=== PATIENT | male | born 1970 | race Two or more races ===

== ENCOUNTER 2019-11-25 09:00 | Emergency (ER) | payer OTHER ==
--- NOTE | 2019-11-25 09:07 | ER Document Report ---
ED Medical Screen (RME) - General Chief Complaint: Abdominal Swelling Stated Complaint: ABDOMINAL LUMP - LEFT SIDE Time Seen by Provider: 11/25/19 09:06 Mode of Arrival: Ambulatory Information source: Patient Notes: 49-year-old male presented to ED for complaint of swelling and pain to the left abdomen in the area of the spleen he said it is been going on for about a month and is painful. He is alert oriented respirations regular nonlabored speaking in full sentences. He states he has not had any injuries that would cause this pain and swelling. He denies any past medical history. He denies any past surgeries. 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 He lives with his significant other. I have greeted and performed a rapid initial assessment of this patient. A comprehensive ED assessment and evaluation of the patient, analysis of test results and completion of medical decision making process will be conducted by an additional ED providers.
[2019-11-25 09:17] VITALS: BP 157/99
[2019-11-25 09:32] LABS: ABSOLUTE EOSINOPHILS # (AUTO) 0.2 10^3/uL (0.0-0.6); ABSOLUTE LYMPHOCYTES (AUTO) 1.6 10^3/uL (0.5-4.7); ABSOLUTE MONOCYTES (AUTO) 0.6 10^3/uL (0.1-1.4); ABSOLUTE NEUT (AUTO) 5.7 10^3/uL (1.7-8.2); BASOPHILS % (AUTO) 0.5 % (0-2); EOSINOPHILS % (AUTO) 2.8 % (0-6); HEMATOCRIT 43.4 % (37.9-51.0); HEMOGLOBIN 14.9 g/dL (13.5-17.0); LYMPHOCYTES % (AUTO) 19.4 % (13-45); MEAN CORPUSCULAR HEMOGLOBIN 31.1 pg (27.0-33.4); MEAN CORPUSCULAR HGB CONC 34.3 g/dL (32.0-36.0); MEAN CORPUSCULAR VOLUME 90 fl (80-97); MONOCYTES % (AUTO) 7.1 % (3-13); PLATELET COUNT 239 10^3/uL (150-450); RED CELL DISTRIBUTION WIDTH 13.9 % (11.5-14.0); SEGMENTED NEUTROPHILS % (AUTO) 70.2 % (42-78); TOTAL CELLS COUNTED % (AUTO) 100 %; WHITE BLOOD COUNT 8.1 10^3/uL (4.0-10.5)
[2019-11-25 09:37] LABS: INTERNATIONAL RATION (INR) 0.96; PARTIAL THROMBOPLASTIN TIME 25.5 SEC (23.5-35.8); PROTHROMBIN TIME 12.8 SEC (11.4-15.4)
[2019-11-25 09:46] LABS: APPEARANCE,URINE CLEAR; BILIRUBIN,URINE NEGATIVE (NEGATIVE); COLOR,URINE STRAW; GLUCOSE, URINE >=500 mg/dL (NEGATIVE); KETONES,URINE NEGATIVE (NEGATIVE); PROTEIN,URINE NEGATIVE (NEGATIVE); URINE SPECIFIC GRAVITY 1.027; UROBILINOGEN,URINE NEGATIVE mg/dL (<2.0)
[2019-11-25 09:52] LABS: ALBUMIN 4.3 g/dL (3.5-5.0); ALKALINE PHOSPHATASE 123 U/L (38-126); ANION GAP 8 (5-19); ASPARTATE AMINO TRANSFERASE 33 U/L (17-59); BILIRUBIN,TOTAL 0.6 mg/dL (0.2-1.3); BLOOD UREA NITROGEN 17 mg/dL (7-20); CALCIUM 9.5 mg/dL (8.4-10.2); CARBON DIOXIDE 29 mmol/L (22-30); CHLORIDE 98 mmol/L (98-107); POTASSIUM 4.5 mmol/L (3.6-5.0); TOTAL PROTEIN 7.7 g/dL (6.3-8.2)
[2019-11-25 10:02] LABS: GLUCOSE 513 mg/dL (75-110)
--- NOTE | 2019-11-25 10:45 | RADIOLOGY REPORT (SQ) ---
EXAM DESCRIPTION: U/S ABDOMEN LIMITED W/O DOP IMAGES COMPLETED DATE/TIME: 11/25/2019 10:23 am REASON FOR STUDY: Pain and swelling in the area of the spleen COMPARISON: None. TECHNIQUE: Static and real time dorantes scale ultrasound images acquired of the spleen. Additional colo r Doppler images acquired. LIMITATIONS: None. FINDINGS: MEASUREMENTS: 11.7 cm. Within normal range. PARENCHYMA: Normal. No masses. ADJACENT SOFT TISSUES: Normal. OTHER: No other significant finding. IMPRESSION: NORMAL SPLEEN. TECHNICAL DOCUMENTATION: JOB ID: [id number] 2010 [employer]- All Rights Reserved Reading location - IP/workstation name: [email or web address]
--- NOTE | 2019-11-25 11:41 | ER Document Report ---
ED General - General Chief Complaint: Abdominal Swelling Stated Complaint: ABDOMINAL LUMP - LEFT SIDE Time Seen by Provider: 11/25/19 09:06 Mode of Arrival: Ambulatory Notes: 49-year-old male presents to the emergency department with a complaint of concerns about a area of bulging on his left flank area/side. He denies pain. But feels like one side is more bulged than the other. He denies any injury or other associated difficulties. He has a history of type 2 diabetes mellitus. - Related Data Allergies/Adverse Reactions: No Known Allergies Allergy (Unverified 11/25/19 11:12) Home Medications: metformin Past Medical History - General Information source: Patient - Social History Smoking Status: Current Every Day Smoker Chew tobacco use (# tins/day): No Frequency of alcohol use: Heavy Drug Abuse: Marijuana Family History: Reviewed & Not Pertinent Patient has suicidal ideation: No Patient has homicidal ideation: No Endocrine Medical History: Reports: Hx Diabetes Mellitus Type 2 Past Surgical History: Denies: Hx Bowel Surgery Review of Systems - Review of Systems Notes: Constitutional: Negative for fever. HENT: Negative for sore throat. Eyes: Negative for visual changes. Cardiovascular: Negative for chest pain. Respiratory: Negative for shortness of breath. Gastrointestinal: Negative for abdominal pain, vomiting or diarrhea. Genitourinary: Negative for dysuria. Musculoskeletal: + Left side bulging.. Skin: Negative for rash. Neurological: Negative for headaches, weakness or numbness. 10 point ROS negative except as marked above and in HPI. Physical Exam - Vital signs Vitals: Temp Pulse Resp BP Pulse Ox 98.6 F 87 20 157/99 H 98 11/25/19 09:07 11/25/19 09:07 11/25/19 09:07 11/25/19 09:07 11/25/19 09:07 - Notes Notes: PHYSICAL EXAMINATION: Physical Exam: General: Well-nourished well-developed in no acute distress HEENT: NC/AT, pupils equal round and reactive to light, MM moist,nares clear, oropharynx clear, airway patent Neck: supple, no adenopathy, no masses. Good range of motion Lungs: clear, no wheezing, no rales no rhonchi CVS: Regular rate and rhythm no murmur gallop or rub Abdomen: Soft, active, nontender, no masses, no hepatosplenomegaly Musculoskeletal: + Fatty tissue left flank area Ext: No edema, clubbing or cyanosis. Neuro: Alert and responsive, moving all 4 extremities on command, cranial nerves intact, no focal findings Skin: Intact no open lesions, no rash PSYCH: Normal mood, normal affect. Course - Re-evaluation Re-evalutation: 11/25/19 11:56 Ultrasound: Spleen is normal, no abnormalities noted, I explained this to the patient, reviewed the labs reveals an elevated glucose greater than 500. I discussed with the patient bringing that blood sugar down with IV fluids and he states that he does not have the time to wait in the emergency department for that treatment. He will start the sweet drinks and take his medication which he has not been taking as per usual. After some discussion the patient has stated that he will sign out AGAINST MEDICAL ADVICE. - Vital Signs Vital signs: Temp Pulse Resp BP Pulse Ox 98.6 F 87 20 157/99 H 98 11/25/19 09:18 11/25/19 09:07 11/25/19 09:07 11/25/19 09:07 11/25/19 09:07 - Laboratory Result Diagrams: 11/25/19 09:15 11/25/19 09:15 Laboratory results interpreted by me: 11/25/19 11/25/19 09:15 09:26 Sodium 134.6 L Glucose 513 H* Urine Glucose (UA) >=500 H Urine Blood SMALL H Discharge - Discharge Clinical Impression: Lipoma of abdominal wall Condition: Good Disposition: AGAINST MEDICAL ADVICE
== END 2019-11-25 11:56 | disposition left against medical advice (07) ==
LOC: ER 09:00
DX: D17.1 Benign lipomatous neoplasm of skin and subcutaneous tissue of trunk (principal); E11.65 Type 2 diabetes mellitus with hyperglycemia; Z91.14 Patient's other noncompliance with medication regimen; F17.200 Nicotine dependence, unspecified, uncomplicated; F12.10 Cannabis abuse, uncomplicated; Z53.29 Procedure and treatment not carried out because of patient's decision for other reasons
CPT/HCPCS: 36415; 76705; 80053; 81001; 85025; 85610; 85730; 99284

== ENCOUNTER 2019-11-29 08:00 | Emergency (ER) | payer OTHER ==
[2019-11-29 08:09] VITALS: BP 149/95
--- NOTE | 2019-11-29 08:28 | ER Document Report ---
ED GI/ - General Chief Complaint: Abdominal Swelling Stated Complaint: FOLLOW UP/ABDOMINAL SWELLING Time Seen by Provider: 11/29/19 08:10 Notes: CHIEF COMPLAINT: Work note HPI: 49-year-old diabetic male presenting requesting a work note to go back to work. Patient states he was seen in the emergency department several days ago. Patient states that he had a lump on the left side which seems to have improved on its own. Patient states that he did have sugary drinks and pancakes with syrup prior to his evaluation the other day causing his elevated blood sugar he was also not taking his medications. He denies any complaints at this time and requests a note to go back to work ROS: See HPI - all other systems were reviewed and are otherwise negative Constitutional: no fever Eyes: no drainage, no blurred vision ENT: no runny nose, no sore throat Cardiovascular: no chest pain Resp: no SOB, no cough GI: no vomiting, no diarrhea, no abdominal pain : no dysuria Integumentary: no rash Allergy: no hives Musculoskeletal: no extremity pain or swelling Neurological: no numbness/tingling, no weakness MEDICATIONS: I agree with the patient medications as charted by the RN. ALLERGIES: I agree with the allergies as charted by the RN. PAST MEDICAL HISTORY/PAST SURGICAL HISTORY: Reviewed and agree as charted by RN. SOCIAL HISTORY: Reviewed and agree as charted by RN. FAMILY HISTORY: No significant familial comorbid conditions directly related to patient complaint EXAM: Reviewed vital signs as charted by RN. CONSTITUTIONAL: Alert and oriented and responds appropriately to questions. Well-appearing; well-nourished HEAD: Normocephalic; atraumatic EYES: PERRL; Conjunctivae clear, sclerae non-icteric ENT: normal nose; no rhinorrhea; moist mucous membranes NECK: Supple without meningismus CARD: RRR; no murmurs, no clicks, no rubs, no gallops; symmetric distal pulses RESP: Normal chest excursion without splinting or tachypnea; breath sounds clear and equal bilaterally; no wheezes, no rhonchi, no rales, pulse oximetry 99% on room air not hypoxic ABD/GI: Normal bowel sounds; non-distended; soft, non-tender, no rebound, no guarding; no palpable organomegaly or masses. BACK: The back appears normal and is non-tender to palpation, there is no CVA tenderness EXT: Normal ROM in all joints; non-tender to palpation; no cyanosis, no effusions, no edema SKIN: Normal color for age and race; warm; dry; good turgor; no acute lesions noted NEURO: Moves all extremities equally; Motor and sensory function intact PSYCH: The patient's mood and manner are appropriate. Grooming and personal hygiene are appropriate. MDM: 49-year-old male noncompliant with medications for diabetes or with diet for diabetes wanting a work note to go back to work he has no physical complaints at this time. Accu-Chek is 375. Patient now states that he did forget to take his medications this morning but does have them and will take them. He declines medication in the emergency department. He declines other examination at this time requesting only a note to go back to work. Patient did sign out AGAINST MEDICAL ADVICE previously - Related Data Allergies/Adverse Reactions: No Known Allergies Allergy (Unverified 11/25/19 11:12) Past Medical History - Social History Smoking Status: Unknown if Ever Smoked Family History: Reviewed & Not Pertinent Patient has suicidal ideation: No Patient has homicidal ideation: No Endocrine Medical History: Reports: Hx Diabetes Mellitus Type 2 Past Surgical History: Denies: Hx Bowel Surgery Physical Exam - Vital signs Vitals: Temp Pulse Resp BP Pulse Ox 98.1 F 76 20 149/95 H 98 11/29/19 08:09 11/29/19 08:09 11/29/19 08:09 11/29/19 08:09 11/29/19 08:09 Course - Vital Signs Vital signs: Temp Pulse Resp BP Pulse Ox 98.3 F 76 20 149/95 H 98 11/29/19 08:19 11/29/19 08:09 11/29/19 08:09 11/29/19 08:09 11/29/19 08:09 Discharge - Discharge Clinical Impression: Hyperglycemia Condition: Stable Disposition: HOME, SELF-CARE Additional Instructions: Make sure you take your medications for diabetes as you can have serious complications with uncontrolled diabetes Forms: Return to Work Referrals: ARUN BRYANT MD [COMMUNITY BASED STAFF] - Follow up as needed
== END 2019-11-29 08:46 | disposition home or self-care (01) ==
LOC: ER 08:00
DX: E11.65 Type 2 diabetes mellitus with hyperglycemia (principal); T50.906A Underdosing of unspecified drugs, medicaments and biological substances, initial encounter; Z91.138 Patient's unintentional underdosing of medication regimen for other reason; Z91.14 Patient's other noncompliance with medication regimen
CPT/HCPCS: 82962; 99284